=== PATIENT | male | born 1965 | race Hispanic/Latino ===

== ENCOUNTER 2022-05-18 08:22 | Emergency (ER) | payer BC ==
--- OUTSIDE RECORDS SUMMARY | 2022-05-18 08:25 | XMS REPORT | Continuity of Care Document ---
:1965 Author Organization [facility] t Address [facility] Dasilva [address] [place] [id number] Care Team Providers Name Role Phone Pcp, Patient Does Not Have A Primary Care Physician [id number] KARMEN FLOOD Attending Clinician Unavailable LAB90 Attending Clinician Unavailable Jared Boland Attending Clinician JARED MIRZA Attending Clinician Unavailable ROMELIA JOSE Attending Clinician Unavailable Romelia Jose MD Attending Clinician GADIEL SOTO Attending Clinician Unavailable Only, Ang Db Test Attending Clinician Unavailable María Street Attending Clinician MARÍA HANSEN Attending Clinician Unavailable Payers Payer Name Policy Type Policy Number Effective Date Expiration Date S rios BCBS 2 [id number] 2020 00:00:00 Problems Condition Condition Condition Status Onset Resolution Last Treating Co mments Source Name Details Category Date Date Treatment Clinician Date Mixed Mixed Disease Active 2021-04 Btesy hyperlipid hyperlipid 04-18 Se ybold emia emia 00:00: - 00 Externa l No known No known Disease Kelse y active active Seybold problems problems Allergies, Adverse Reactions, Alerts Allergy Allergy Status Severity Reaction(s) Onset Inactive Treating Comm ents Source Name Type Date Date Clinician NO KNOWN Drug Active [facility] ALLERGIE [facility] Social History Social Habit Start Date Stop Date Quantity Comments Source History SDOH Betsy montilla - Alcohol Frequency Externa l History SDOH Betsy montilla - Alcohol Std Drinks Setter Helper al History SDOH Betsy montilla - Alcohol Binge External Exposure to Not sure Betsy vela SARS-CoV-2 (event) History of tobacco Snuff User Betsy Glasgow - use External Alcohol intake 2022-02-16 2022-02-16 1.71 /d Betsy baird - 00:00:00 00:00:00 External Cigarettes smoked 2022-02-16 2022-02-16 Betsy Glasgow - current (pack per 00:00:00 00:00:00 Externa l day) - Reported Cigarette 2022-02-16 2022-02-16 Betsy Glasgow - pack-years 00:00:00 00:00:00 External Education 2022-02-16 2022-02-16 9 Betsy Glasgow - 00:00:00 00:00:00 External Tobacco use and 2022-02-16 2022-02-16 User of smokeless Ke leeroy Glasgow - exposure 00:00:00 00:00:00 tobacco External Alcohol Comment 2020-08-26 2020-08-26 patient does not Tony saenzkarin Glasgow - 00:00:00 00:00:00 think there is a External problem Sex [birth year] At [birth year] Betsy Saenz eransridevi - 00:00:00 00:00:00 External Smoking Status Start Date Stop Date Source Unknown if ever smoked [facility] Ex-smoker 2022-02-16 00:00:00 2022-02-16 00:00:00 Betsy mcgowan - External Medications Ordered Filled Start Stop Current Ordering Indication Dosage Frequency Signature Comments Components Source Medication Medication Date Date Medication? Clinician (SIG) Name Name Rosuvastati 2021-04 Yes [id number] 5mg Take 1 Betsy day Calcium 1-01 tablet (5 Seybo ld (Crestor) 5 00:00: mg total) - MG oral 00 by mouth Externa Tablet daily l Rosuvastati 2021- No [id number] 10mg Take 1 Betsy n Calcium 8-05 11-01 tablet (10 Sey bold (Crestor) 00:00: 00:00 mg total) - 10 MG oral 00 :00 by mouth Exter na Tablet daily l Na Yes [id number] Use as Betsy Sulfate-K 1-07 directed Seybol d Sulfate-Mg 00:00: Sulf 00 (Suprep Bowel Prep Kit) 17.5-3.13-1 .6 GM/177ML oral Solution Rosuvastati 2020-04- No 10mg Take 10 mg Betsy n Calcium 2-20 12-20 by mouth Seybo ld (Crestor) 13:18: 00:00 daily 10 MG oral 44 :00 Tablet Rosuvastati 2020-04 Yes [id number] 10mg Take 1 Betsy n Calcium 2-20 tablet (10 Seyb old (Crestor) 00:00: mg total) 10 MG oral 00 by mouth Tablet daily Rosuvastati 2020-04 Yes [id number] 10mg Take 1 Betsy n Calcium 2-20 tablet (10 Seyb old (Crestor) 00:00: mg total) 10 MG oral 00 by mouth Tablet daily Rosuvastati 2020-04 Yes [id number] 10mg Take 1 Betsy n Calcium 2-20 tablet (10 Seyb old (Crestor) 00:00: mg total) 10 MG oral 00 by mouth Tablet daily Chlorhexidi 2020-04 Yes Betsy ne 1-05 Seybold Gluconate 00:00: 0.12 % 00 mouth/throa t Solution Chlorhexidi 2020-04 Yes Betsy ne 1-05 Seybold Gluconate 00:00: 0.12 % 00 mouth/throa t Solution Chlorhexidi 2020-04- No Jennifer y ne 1-05 06-08 Seybold Gluconate 00:00: 00:00 0.12 % 00 :00 mouth/throa t Solution Amoxicillin 2020-04 Yes Betsy 500 MG oral 1-04 Seybold Tablet 00:00: 00 Amoxicillin 2020-04 Yes Betsy 500 MG oral 1-04 Seybold Tablet 00:00: 00 Amoxicillin 2020-04- No Kelse y 500 MG oral 1-04 06-08 Seybold Tablet 00:00: 00:00 00 :00 Vital Signs Vital Name Observation Time Observation Value Comments Source Systolic blood 2022-02-16 14:34:00 132 mm[Hg] Betsy Seybold - pressure External Diastolic blood 2022-02-16 14:34:00 68 mm[Hg] Kelse y Seybold - pressure External Heart rate 2022-02-16 14:34:00 81 /min Betsy S eybold - External Body temperature 2022-02-16 14:34:00 36.56 Leydi Thania ey Seybold - External Respiratory rate 2022-02-16 14:34:00 14 /min Thania ey Seybold - External Body height 2022-02-16 14:34:00 182.9 cm Betsy S eybold - External Body weight 2022-02-16 14:34:00 108.41 kg Betsy S eybold - External BMI 2022-02-16 14:34:00 32.41 kg/m2 Betsy S eybold - External Oxygen saturation in 2022-02-16 14:34:00 99 /min Betsy Seybold - Arterial blood by External Pulse oximetry Systolic blood 2021 13:32:00 94 mm[Hg] Betsy Seybold pressure Diastolic blood 2021 13:32:00 58 mm[Hg] Kelse y Seybold pressure Heart rate 2021 13:32:00 61 /min Betsy S eybold Body temperature 2021 13:32:00 35.89 Leydi Thania ey Seybold Respiratory rate 2021 13:32:00 14 /min Thania ey Seybold Body height 2021 13:32:00 182.9 cm Betsy S eybold Body weight 2021 13:32:00 107.049 kg Betsy S eybold BMI 2021 13:32:00 32.01 kg/m2 Betsy S eybold Systolic blood 2021-04-24 20:25:00 116 mm[Hg] Betsy Seybold pressure Diastolic blood 2021-04-24 20:25:00 72 mm[Hg] Kelse y Seybold pressure Heart rate 2021-04-24 20:25:00 74 /min Betsy S eybold Body temperature 2021-04-24 20:25:00 36.17 Leydi Thania ey Seybold Respiratory rate 2021-04-24 20:25:00 20 /min Thania ey Seybold Body height 2021-04-24 20:25:00 182.9 cm Betsy Zhao eybold Body weight 2021-04-24 20:25:00 105.235 kg Betsy Zhao eybold BMI 2021-04-24 20:25:00 31.46 kg/m2 Betsy S eybold Systolic blood 2021-04-06 19:02:00 118 mm[Hg] Betsy Seybold pressure Diastolic blood 2021-04-06 19:02:00 82 mm[Hg] Kelse y Seybold pressure Heart rate 2021-04-06 19:02:00 70 /min Betsy Zhao eybold Body temperature 2021-04-06 19:02:00 36.28 Leydi Thania ey Seybold Respiratory rate 2021-04-06 19:02:00 14 /min Thania el Seybold Body height 2021-04-06 19:02:00 182.9 cm Betsy elboroldan Body weight 2021-04-06 19:02:00 105.688 kg Betsy elbold BMI 2021-04-06 19:02:00 31.60 kg/m2 Betsy elboroldan Procedures This patient has no known procedures. Encounters Start End Encounter Admission Attending Care Care Encounter Source Date/Time Date/Time Type Type Clinicians Facility Department ID 2022-02-16 2022-02-16 Outpatient BETSY FLOOD [id number] Betsy 09:45:00 09:45:00 KARMEN Seybol d 2022-02-04 2022-02-04 Outpatient LAB90 BETSY WORKMAN [id number] Betsy 08:05:00 08:05:00 Seybol d 2021-11-26 2021-11-26 Office Elia Mirza [id number] Betsy 16:00:00 16:30:00 Visit Jared Gonzalez [id number] Se ybold [id number] 2021-11-20 2021-11-20 Outpatient YUKI BETSY WORKMAN [id number] Betsy 00:00:00 00:00:00 JARED Seybol d 2021 2021 Outpatient LAB90 BETSY WORKMAN [id number] Betsy 09:15:00 09:15:00 Seybol d 2021 2021 Office Elia Mirza [id number] Betsy 08:30:00 09:00:00 Visit Jared Gonzalez [id number] Se ybold [id number] 2021 2021 Outpatient YUKI BETSY WORKMAN [id number] Betsy 00:00:00 00:00:00 JARED Seybol d 2021-09-18 2021-09-18 Outpatient CISCOFrancisca BETSY WORKMAN [id number] Betsy 08:00:00 08:00:00 JARDE Seybol d 2021-07-09 2021-07-09 Outpatient DANA, BETSY WORKMAN [id number] Betsy 00:00:00 00:00:00 ROMELIA Seybol d 2021-07-07 2021-07-07 Outpatient BETSY JOSE [id number] Betsy 06:30:00 06:30:00 ROMELIA Seybol d 2021-04-24 2021-04-24 Office DESI Jose [id number] Betsy 14:45:00 15:00:00 [facility] [id number] Se ybold [id number] 2021-04-06 2021-04-06 Outpatient LAB90 BETSY WORKMAN [id number] Betsy 13:45:00 13:45:00 Seybol d 2021-04-06 2021-04-06 Office Elia Mirza [id number] Betsy 13:00:00 13:30:00 Visit Jared Gonzalez [id number] Se ybold [id number] 2021-04-01 2021-04-01 Outpatient BETSY MIRZA [id number] Betsy 08:30:00 08:30:00 JARED Seybol mirian 2021-03-02 2021-03-02 Outpatient BETSY MIRZA [id number] Betsy 10:30:00 10:30:00 JARED Seybol mirian 2021-03-02 2021-03-02 Outpatient BETSY SOTO [id number] Betsy 00:00:00 00:00:00 GADIEL Seybol mirian 2021-01-30 2021-01-30 Laboratory Only, Ang Db Test [facility] [id number] [facility] 10:14:43 10:29:43 [id number] [facility] [id number] Pako as Boaz?Blea [id number] Medical Office Building 2021-01-30 2021-01-30 Outpatient R TYRONE [facility] [id number] Univers 10:15:00 10:15:00 [facility] Results This patient has no known results.
[2022-05-18 09:08] LABS: Absolute Lymphocytes (CBC) 1.8 K/uL (0.7-4.9); Hematocrit 45.1 % (39.6-49.0); Lymphocytes % 24.8 % (15.3-44.8); MCV 87.6 fL (80-100); MPV 9.2 fL (7.6-11.3); RBC Red Blood Cell Count 5.15 M/uL (4.33-5.43)
[2022-05-18 09:17] LABS: Potassium 3.8 mmol/L (3.5-5.1); Troponin High Sensitivity 4.3 pg/mL (<58.9)
--- NOTE | 2022-05-18 09:43 | RAD REPORT ---
EXAM DESCRIPTION: RAD - Chest Single View - 05/18/2022 9:37 am CLINICAL HISTORY: PAIN COMPARISON: Portable 07/11/2008 TECHNIQUE: AP portable chest image was obtained 05/18/2022 9:37 am . FINDINGS: No focal mass or consolidation. Interstitial pattern is not substantially different from c omparison when adjusting for imaging technique. Heart size is normal range. No abnormal vascular engorgement. Hilar regions are within range of norm al and stable. No measurable pleural effusion and no pneumothorax. No acute bony abnormality seen. No acute aortic findings suspected. IMPRESSION: No acute cardiopulmonary process. No significant change from comparison study.
--- NOTE | 2022-05-18 10:08 | RAD REPORT ---
EXAM DESCRIPTION: CT - Head Brain Wo Cont - 05/18/2022 9:50 am CLINICAL HISTORY: LUE numbness COMPARISON: No comparisons TECHNIQUE: Axial 5 mm thick images of the head were obtained without IV contrast. All CT scans are performed using dose optimization technique as appropriate and may include automated exposure control or mA/KV adjustment according to patient size. FINDINGS: No intracranial hemorrhage, mass, edema or shift of mid-line structures. No acute infarcti on changes seen. No abnormal extra-axial fluid collections. Ventricles are normal. Mastoid air cells and visualized portions of the paranasal sinuses are clear. No acute bony findings. IMPRESSION: Negative non-contrast CT head examination.
--- NOTE | 2022-05-18 10:13 | EDPHYS ---
Physician Documentation [facility] Name: Torey Campuzano Age: 56 yrs Sex: Male : 1965 Arrival Date: 05/18/2022 Time: 08:24 Bed 15 Private MD: ED Physician Jacky Palacio HPI: 05/18 08:55 This 56 yrs old Male presents to ER via Ambulatory with complaints of Numbness jh7 Of L shoulder and Hand. 08:55 56-year-old male presents with left shoulder and hand numbness starting 30 minutes jh7 prior to arrival. Reports that he wants to ensure that there is nothing wrong with his heart. States that the numbness is constant but when he abducts his shoulder he also experiences tingling. Denies chest pain, dizziness, or shortness of breath. Took 81 mg of aspirin this morning. No medical problems. No PCP.. Historical: - Allergies: 08:52 No Known Allergies; aa5 - PMHx: 08:52 None; aa5 - PSHx: 08:52 Right Meniscus repair; aa5 - Immunization history:: Adult Immunizations unknown. - Social history:: Smoking status: Patient denies any tobacco usage or history of. ROS: 08:55 Constitutional: Negative for fever, chills, and weight loss, Eyes: Negative for injury, jh7 pain, redness, and discharge, ENT: Negative for injury, pain, and discharge, Neck: Negative for injury, pain, and swelling, Cardiovascular: Negative for chest pain, palpitations, and edema, Respiratory: Negative for shortness of breath, cough, wheezing, and pleuritic chest pain, Abdomen/GI: Negative for abdominal pain, nausea, vomiting, diarrhea, and constipation, Back: Negative for injury and pain, MS/Extremity: Negative for injury and deformity, Skin: Negative for injury, rash, and discoloration. 08:55 Neuro: Positive for numbness, Negative for altered mental status, dizziness, headache, loss of consciousness, syncope, visual changes, weakness. 08:55 All other systems are negative. Exam: 08:55 Constitutional: This is a well developed, well nourished patient who is awake, alert, jh7 and in no acute distress. Head/Face: Normocephalic, atraumatic. Eyes: Pupils equal round and reactive to light, extra-ocular motions intact. Lids and lashes normal. Conjunctiva and sclera are non-icteric and not injected. Cornea within normal limits. Periorbital areas with no swelling, redness, or edema. Neck: Trachea midline, no thyromegaly or masses palpated, and no cervical lymphadenopathy. Supple, full range of motion without nuchal rigidity, or vertebral point tenderness. No Meningismus. Cardiovascular: Regular rate and rhythm with a normal S1 and S2. No gallops, murmurs, or rubs. Normal PMI, no JVD. No pulse deficits. Respiratory: Lungs have equal breath sounds bilaterally, clear to auscultation and percussion. No rales, rhonchi or wheezes noted. No increased work of breathing, no retractions or nasal flaring. Abdomen/GI: Soft, non-tender, with normal bowel sounds. No distension or tympany. No guarding or rebound. No evidence of tenderness throughout. Back: No spinal tenderness. No costovertebral tenderness. Full range of motion. Skin: Warm, dry with normal turgor. Normal color with no rashes, no lesions, and no evidence of cellulitis. MS/ Extremity: Pulses equal, no cyanosis. Neurovascular intact. Full, normal range of motion. Neuro: Awake and alert, GCS 15, oriented to person, place, time, and situation. Cranial nerves II-XII grossly intact. Motor strength 5/5 in all extremities. Sensory grossly intact. Cerebellar exam normal. Normal gait. Vital Signs: 08:39 BP 123 / 92; Pulse 79; Resp 18 S; Temp 98.2(TE); Pulse Ox 96% on R/A; Weight 106.59 kg aa5 (R); Height 6 ft. 0 in. (182.88 cm) (R); 10:11 BP 124 / 80; Pulse 70; Resp 19; Pulse Ox 100% ; bp 10:49 BP 132 / 75; Pulse 70; Resp 18; Pulse Ox 95% ; bp 08:39 Body Mass Index 31.87 (106.59 kg, 182.88 cm) 5 NIH Stroke Scale Scores: 08:55 NIHSS Score: 0 [facility] MDM: 08:28 Patient medically screened. [facility] 10:11 Differential diagnosis: Acute coronary syndrome, shoulder impingement, acute CVA, [facility] muscle spasm. Data reviewed: vital signs, nurses notes, lab test result(s), EKG, radiologic studies, CT scan, plain films. Consideration of Admission/Observation Escalation of care including admission/observation considered. Heart score 1, no past medical history, no chest pain, symptoms resolving at time of discharge. I considered the following discharge prescriptions or medication management in the emergency department Medications were administered in the Emergency Department. See MAR. Counseling: I had a detailed discussion with the patient and/or guardian regarding: the historical points, exam findings, and any diagnostic results supporting the discharge/admit diagnosis, to return to the emergency department if symptoms worsen or persist or if there are any questions or concerns that arise at home. 05/18 08:38 Order name: Basic Metabolic Panel; Complete Time: 09:18 [facility] 05/18 08:38 Order name: CBC with Diff; Complete Time: 09:16 05/18 08:38 Order name: Troponin HS; Complete Time: 09:18 05/18 08:38 Order name: XRAY Chest (1 view); Complete Time: 10:09 05/18 08:38 Order name: EKG; Complete Time: 08:38 05/18 09:31 Order name: CT Head Brain wo Cont; Complete Time: 10:09 05/18 08:38 Order name: Cardiac monitoring; Complete Time: 08:59 05/18 08:38 Order name: EKG - Nurse/Tech; Complete Time: 08:59 05/18 08:38 Order name: IV Saline Lock; Complete Time: 08:52 05/18 08:38 Order name: Labs collected and sent; Complete Time: 08:52 05/18 08:38 Order name: O2 Per Protocol; Complete Time: 08:59 05/18 08:38 Order name: O2 Sat Monitoring; Complete Time: 09:17 EC:55 Rate is 72 beats/min. Rhythm is regular. QRS [place] is Normal. [place] interval is normal at [facility] 144 msec. QRS interval is normal at 80 msec. QT interval is normal at 364 msec. No Q waves. T waves are Normal. No ST changes noted. Clinical impression: Normal ECG. Administered Medications: No medications were administered Disposition: 18:07 Co-signature as Attending Physician, Jacky Palacio MD I reviewed the patient's care rn provided by the Advanced Practice Provider and agree with the diagnosis and treatment plan. Disposition Summary: 05/18/22 10:13 Discharge Ordered Location: Home [facility] Problem: new [facility] Symptoms: have improved [facility] Condition: Stable [facility] Diagnosis - Numbness of the Right Upper Extremity [facility] Followup: [facility] - With: Private Physician - When: 2 - 3 days - Reason: Recheck today's complaints Discharge Instructions: - Discharge Summary Sheet [facility] - Acute Coronary Syndrome [facility] - Shoulder Impingement Syndrome [facility] Forms: - Medication Reconciliation Form [facility] - Thank You Letter [facility] NIH Stroke Scale - NIH Stroke Score Date: 05/18/2022 Time: 08:55 Total Score = 0 1a. Level of Consciousness (LOC) - 0(Alert) 1b. Level of Consciousness (LOC) (Month \T\ Age) - 0(Both) 1c. LOC Commands (Open \T\ Closes Eyes/Computer Systems Administrator) - 0(Both) 2. Best Gaze (Lateral Gaze Paresis) - 0(Normal) 3. Visual Field Loss - 0(No visual loss) 4. Facial Palsy - 0(Normal) 5a. Left Arm: Motor (10-second hold) - 0(No drift) 5b. Right Arm: Motor (10-second hold) - 0(No drift) 6a. Left Leg: Motor (5-second hold - always test supine) - 0(No drift) 6b. Right Leg: Motor (5-second hold - always test supine) - 0(No drift) 7. Limb Ataxia (finger/nose \T\ heel/bales - test with eyes open) - 0(Absent) 8. Sensory Loss (pinprick arms/legs/face) - 0(Normal) 9. Best Language: Aphasia (description/naming/reading) - 0(No aphasia) 10. Dysarthria (speech clarity - read or repeat words) - 0(Normal) 11. Extinction and Inattention (visual/tactile/auditory/spatial/personal) - 0(No abnormality) Initials: [facility] Signatures: Dispatcher [employer] Jacky Coelho MD MD rn Calderon, Audri, RN RN aa5 Reva Pickett, RESIDENTIAL COORDINATOR RESIDENTIAL COORDINATOR [facility]
--- NOTE | 2022-05-18 10:13 | ER ---
Nurse's Notes [facility] Name: Torey Campuzano Age: 56 yrs Sex: Male : 1965 Arrival Date: 05/18/2022 Time: 08:24 Bed 15 Private MD: Diagnosis: Numbness of the Right Upper Extremity Presentation: 05/18 08:39 Chief complaint: Chief complaint: Patient states: left hand numbness x 30 mins CLIENT RELATIONS REPRESENTATIVE, pt aa5 states "the numbness just went away but my hand just feels weird". Pt denies any other symptoms. 08:39 Coronavirus screen: At this time, the client does not indicate any symptoms associated aa5 with coronavirus-19. Ebola Screen: Patient denies travel to an Ebola-affected area in the 21 days before illness onset. Initial Sepsis Screen: Does the patient meet any 2 criteria? No. Patient's initial sepsis screen is negative. Does the patient have a suspected source of infection? No. Patient's initial sepsis screen is negative. Risk Assessment: Do you want to hurt yourself or someone else? Patient reports no desire to harm self or others. Onset of symptoms was April 2022. 08:39 Acuity: PÉREZ 3 aa5 08:39 Method Of Arrival: Ambulatory aa5 Triage Assessment: 08:45 General: Appears in no apparent distress. Behavior is appropriate for age. Pain: Denies bp pain. EENT: No deficits noted. Neuro: Reports numbness in left hand. Cardiovascular: No deficits noted. Respiratory: No deficits noted. GI: No signs and/or symptoms were reported involving the gastrointestinal system. : No signs and/or symptoms were reported regarding the genitourinary system. Derm: No deficits noted. Musculoskeletal: No deficits noted. Historical: - Allergies: 08:52 No Known Allergies; aa5 - PMHx: 08:52 None; aa5 - PSHx: 08:52 Right Meniscus repair; aa5 - Immunization history:: Adult Immunizations unknown. - Social history:: Smoking status: Patient denies any tobacco usage or history of. Screenin:45 [facility] ED Fall Risk Assessment (Adult) History of falling in the last 3 months, bp including since admission No falls in past 3 months (0 pts). Abuse screen: Denies threats or abuse. Denies injuries from another. Nutritional screening: No deficits noted. Tuberculosis screening: No symptoms or risk factors identified. Assessment: 08:45 General: SEE TRIAGE NOTE. bp 10:48 Reassessment: PT DC HOME AMBULATORY. bp Vital Signs: 08:39 BP 123 / 92; Pulse 79; Resp 18 S; Temp 98.2(TE); Pulse Ox 96% on R/A; Weight 106.59 kg aa5 (R); Height 6 ft. 0 in. (182.88 cm) (R); 10:11 BP 124 / 80; Pulse 70; Resp 19; Pulse Ox 100% ; bp 10:49 BP 132 / 75; Pulse 70; Resp 18; Pulse Ox 95% ; bp 08:39 Body Mass Index 31.87 (106.59 kg, 182.88 cm) aa NIH Stroke Scale Scores: 08:55 NIHSS Score: 0 [facility] ED Course: 08:24 Patient arrived in ED. as 08:28 Reva Pickett FNP is PHCP. [facility] 08:28 Jacky Palacio MD is Attending Physician. [facility] 08:39 Arm band placed on. aa 08:45 Patient has correct armband on for positive identification. Bed in low position. Call bp light in reach. Side rails up X2. 08:47 Chivo Pineda, RN is Primary Nurse. bp 08:52 Triage completed. aa5 08:52 Basic Metabolic Panel Sent. 6 08:52 CBC with Diff Sent. bc6 08:52 Troponin HS Sent. 6 08:52 Initial lab(s) drawn, by az, sent to lab. Inserted saline lock: 20 gauge in right bc6 antecubital area, using aseptic technique. 09:38 XRAY Chest (1 view) In Process Unspecified. EDMS 09:52 CT Head Brain wo Cont In Process Unspecified. EDMS 10:48 No provider procedures requiring assistance completed. IV discontinued, intact, bp bleeding controlled, No redness/swelling at site. Pressure dressing applied. Administered Medications: No medications were administered Medication: 08:45 VIS not applicable for this client. bp Outcome: 10:13 Discharge ordered by . jh7 10:48 Discharged to home ambulatory. bp 10:48 Condition: stable 10:48 Discharge instructions given to patient, Instructed on discharge instructions, follow up and referral plans. Demonstrated understanding of instructions, follow-up care. 10:50 Patient left the ED. bp NIH Stroke Scale - NIH Stroke Score Date: 05/18/2022 Time: 08:55 Total Score = 0 1a. Level of Consciousness (LOC) - 0(Alert) 1b. Level of Consciousness (LOC) (Month \\T\\ Age) - 0(Both) 1c. LOC Commands (Open \\T\\ Closes Eyes/Agronomy Teacher) - 0(Both) 2. Best Gaze (Lateral Gaze Paresis) - 0(Normal) 3. Visual Field Loss - 0(No visual loss) 4. Facial Palsy - 0(Normal) 5a. Left Arm: Motor (10-second hold) - 0(No drift) 5b. Right Arm: Motor (10-second hold) - 0(No drift) 6a. Left Leg: Motor (5-second hold - always test supine) - 0(No drift) 6b. Right Leg: Motor (5-second hold - always test supine) - 0(No drift) 7. Limb Ataxia (finger/nose \\T\\ heel/bales - test with eyes open) - 0(Absent) 8. Sensory Loss (pinprick arms/legs/face) - 0(Normal) 9. Best Language: Aphasia (description/naming/reading) - 0(No aphasia) 10. Dysarthria (speech clarity - read or repeat words) - 0(Normal) 11. Extinction and Inattention (visual/tactile/auditory/spatial/personal) - 0(No abnormality) Initials: jh7 Signatures: Dispatcher [employer] Leticia Kruse Audri RN RN aa5 Chivo Pineda RN RN bp Reva Pickett, SURG NURSE SURG NURSE 7 Kenisha Calle6 Corrections: (The following items were deleted from the chart) 08:52 08:39 Chief complaint: shira silva
[2022-05-18 11:06] VITALS: TEMP 98.2
[2022-05-18 11:17] VITALS: BP 132/75; O2SAT 95
== END 2022-05-18 10:50 | disposition home or self-care (01) ==
LOC: ER 08:22
DX: R20.0 Anesthesia of skin (principal)
CPT/HCPCS: 36415; 70450; 71045; 80048; 84484; 85025; 93005